=== PATIENT | female | born 1960 | race Caucasian/White ===

== ENCOUNTER → 2021-10-18 | Outpatient (REF) | payer BC, OTHER | LOC: M LAB REF 16:27 | PROVIDERS: ATTEND Nurse Practitioner Adult Health | DX: N39.0 Urinary tract infection, site not specified (principal) ==

== ENCOUNTER 2024-04-06 06:43 | Day surgery (SDC) | payer BC ==
[~2024-04-06] VITALS: Ht 162.6 cm; Wt 71.7 kg
[~2024-04-06 06:43] MED LIST: FAMO20TA PO; LIDOCAINE 2% 100MG/5ML SDV (FOR ANES.) As Ordered ONE; OLME20TA50 PO; ROSU5TAB49 PO; VITA100093 PO; propofoL 200 MG/20 ML VIAL As Ordered ONE
[2024-04-06] MEDS ORDERED: fentaNYL 100 MCG/2 ML INJECTION As Ordered ONE (07:15)
[2024-04-06 08:02] VITALS: TEMP 98.9
[2024-04-06 08:20] VITALS: BP 108/64; O2SAT 94
== END 2024-04-06 08:30 | disposition home or self-care (01) ==
LOC: M OPP 06:43
PROVIDERS: ATTEND Internal Medicine Gastroenterology
DX: Z12.11 Encounter for screening for malignant neoplasm of colon (principal); Z12.12 Encounter for screening for malignant neoplasm of rectum; K57.30 Diverticulosis of large intestine without perforation or abscess without bleeding; K29.50 Unspecified chronic gastritis without bleeding; K64.0 First degree hemorrhoids; K44.9 Diaphragmatic hernia without obstruction or gangrene; K22.89 Other specified disease of esophagus; R12 Heartburn; I10 Essential (primary) hypertension; E78.00 Pure hypercholesterolemia, unspecified; Z79.899 Other long term (current) drug therapy; Z90.710 Acquired absence of both cervix and uterus
CPT/HCPCS: 43239; 45378; 88305; J3010